=== PATIENT | female | born 1945 | race Caucasian/White ===

== ENCOUNTER 2017-06-01 20:00 | Inpatient (IN) | payer MEDICARE, OTHER ==
[~2017-06-01] VITALS: Ht 152.4 cm; Wt 65.8 kg
--- NOTE | ~2017-06-01 | CO ---
Unit #: [id number] #: [id number] Patient: DELORES HSU [id number] [facility] [address] [place] [address] [id number] I MR#: [id number] NAME: DELORES HSU ROOM: [facility] Age: 71 Sex: F Admission Date: 06/02/2017 : 1945 Attending Physician: Damian Telles M.D. Primary Care Physician: Generic Doctor Not In System Consultation Date: 06/05/2017 CONSULTATION REPORT SUBJECTIVE Delores is a 71-year-old who complained of continued dysuria despite treatment with Cipro 500 mg b.i.d. Start Pyridium 200 mg one p.o. t.i.d. x3 days. Dictated by... Krystal Alcantara P.A.-C. for Huseyin Spring/jose c TD: 06/07/2017 20:42 JOB #: [id number] CONSULTATION REPORT Page 1 of 1 X Krystal Alcantara CONSULTATION REPORT
--- NOTE | ~2017-06-01 | PN ---
Unit #: [id number] #: [id number] Patient: DELORES MOSLEY [id number] [facility] [address] [place] [address] [id number] MR#: [id number] NAME: DELORES MOSLEY ROOM: P252 Age: 71 Sex: F Admission Date: 06/02/2017 : 1945 Attending Physician: Damian Telles M.D. Admitting Physician: Damian Telles M.D. Primary Care Physician: Generic Doctor Not In System [facility] PROGRESS NOTES DATE OF SERVICE 06/10/2017 DISCUSSION Ms. Delores Mosley is a 71-year-old female. Patient seen on 06/10/2017. Patient continues to report feeling sad, depressed, withdrawn, isolative, guarded. No side effects from medication. Complete review of systems unremarkable. MENTAL STATUS EXAMINATION General appearance, patient dressed casually. Attention span and concentration fair. Oriented to time, place and person. Mood and affect sad, dysphoric. Speech monotone. Thought process concrete. Patient denied any thoughts of harming others but having passive SI. Recent and remote memory poor. Insight and judgement poor. DIAGNOSES Major depressive disorder, recurrent severe. ASSESSMENT/PLAN Advise to discontinue Remeron and add Abilify 5 mg at bedtime for mood symptoms. If needed consider further adjustment of medication. Dictated by... Huseyin Rico/anthony TD: 06/12/2017 03:57 JOB #: [id number] [facility] PROGRESS NOTES Page 1 of 1 X Damian Telles MD X PROGRESS NOTE
--- NOTE | ~2017-06-01 | DS ---
Unit #: [id number] #: [id number] Patient: JAVAN HSU [id number] [facility] [address] [place] [address] [id number] I MR#: [id number] NAME: JAVAN HSU ROOM: [facility] Age: 71 Sex: F Admission Date: 06/02/2017 : 1945 Discharge Date: 06/12/2017 Attending Physician: Damian Telles M.D. Primary Care Physician: Generic Doctor Not In System DISCHARGE SUMMARY REASON FOR ADMISSION Depression. DIAGNOSTIC STUDIES LABORATORY RESULTS: Unremarkable. HOSPITAL COURSE The patient was admitted to the inpatient unit on 06/02/2017 and discharged on 06/12/2017. The patient was treated with group therapy, individual therapy, and medication management. The patient was responsive to treatment and showed improvement. Subsequently, the patient was discharged with a plan to follow up in outpatient program. DISCHARGE MEDICATIONS Vistaril 75 mg at bedtime for sleep and anxiety, Wellbutrin XL 300 mg in the morning for depression, Cymbalta 60 mg b.i.d. for depression, and Remeron 15 mg at bedtime for sleep. The patient to continue with Lipitor, Zestril, Lopressor, Zetia, and Plavix. DISCHARGE DIAGNOSES Psychiatric: Major depressive disorder, recurrent, severe, F33.2. Secondary diagnosis: Deferred. Medical diagnoses: History of heart blockage. History of coronary artery disease. History of CVA, February 2017. Hypotension. Hypercholesterolemia. DISCHARGE INSTRUCTIONS The patient to follow up in outpatient clinic as per social security benefits interviewer. CONDITION ON DISCHARGE The patient was pleasant and cooperative. Denied any psychotic symptom or any suicidal ideation. PROGNOSIS Guarded. DIET AND ACTIVITY As tolerated. Dictated by... Damian Telles M.D. Unit #: [id number] #: [id number] Patient: JAVAN HSU TIC/modl TD: 06/13/2017 11:46 JOB #: [id number] DISCHARGE SUMMARY Page 1 of 1 X Damian Telles MD X DISCHARGE SUMMARY
--- NOTE | ~2017-06-01 | PA ---
Unit #: [id number] #: [id number] Patient: JAVAN HSU [id number] [facility] [address] [place] [address] [id number] I MR#: [id number] NAME: JAVAN HSU ROOM: P252 Age: 71 Sex: F Admission Date: 06/02/2017 : 1945 Date of Assessment: 06/02/2017 Attending Physician: Damian Telles M.D. Admitting Physician: Damian Telles M.D. Primary Care Physician: Generic Doctor Not In System PSYCHIATRIC ASSESSMENT INFORMANTS The patient reliability, fair informant and chart reliability, good. CHIEF COMPLAINT Depression. HISTORY OF PRESENT ILLNESS Ms. Estrella is a 71-year-old female, presented with the above-mentioned complaint. The patient reported currently her medications are not working. Currently, on Cymbalta. Reports an increase in depression and suicidal ideation. The patient reports a history of previous inpatient treatment at [facility], [facility], and [facility]. The patient reported not functioning in the last 5 weeks. Reports lack of energy, staying in bed, lost significant amount of weight, little food, lives alone, severe depression, suicidal ideation, grieving the of her son and history of suicide attempt. Needing inpatient admission at this time for psychiatric stabilization. PAST PSYCHIATRIC HISTORY Remarkable for history of previous treatment at [facility], [facility], [facility] for depression. FAMILY AND SOCIAL HISTORY The patient has a poor support system. No history of any abuse. No history of any substance abuse. Family psychiatric illness is remarkable for history of biological mother had bipolar mood disorder. Son with addiction. MEDICAL HISTORY Remarkable for history of heart blockage. Musculoskeletal; muscle strength and tone, no atrophy or abnormal movement. Gait normal. MEDICATION HISTORY The patient is on Cymbalta 60 mg b.i.d., Plavix 75 mg daily, Zetia 10 mg daily, vitamin B12, lisinopril, metoprolol. ALLERGIES No known drug allergies. SUBSTANCE ABUSE HISTORY None. REVIEW OF SYSTEMS Unit #: [id number] #: [id number] Patient: JAVAN HSU HEENT: Eyes, clear. Ears, nose, mouth, and throat; clear. CARDIOVASCULAR: Unremarkable. RESPIRATORY: Unremarkable. GI: Unremarkable. : Unremarkable. SKIN: Unremarkable. LYMPH NODE: Unremarkable. NEUROLOGIC: Unremarkable. ENDOCRINE: Unremarkable. HEMATOLOGIC: Unremarkable. ALLERGIC/IMMUNOLOGIC: Unremarkable. MUSCULOSKELETAL: Muscle strength and tone, no atrophy or abnormal movement. Gait normal. MENTAL STATUS EXAMINATION CONSTITUTIONAL: Measurement of vital signs; temperature 98.3, pulse 73, respirations 16, blood pressure 133/86, height 5 feet, weight 145 pounds. GENERAL APPEARANCE: The patient dressed casually. The patient did not show any facial deformity. MUSCULOSKELETAL: Please see above. PSYCHIATRIC EXAMINATION Description of speech; regular rate and rhythm. Description of thought process, goal directed. Description of association, intact. Description of abnormal psychotic thinking, denied any hallucination or delusions, but depression and suicidal ideation. Denied any homicidal ideation. Description of the patient's judgment, concerning. Everyday activity, poor. Social situation, poor and concerning. Psychiatric condition, poor. Complete mental status examination; oriented in time, place, and person. Recent and remote memory, fair. Attention span and concentration, fair. Language, able to name object and repeat phrases. Fund of knowledge, aware of current event and passive. Vocabulary intact. Mood and affect, sad and dysphoric. Insight and judgment, fair to poor. ASSETS AND LIABILITIES Assets, the patient is articulate and able to take care of her ADL. Liability, history of depression. ADMITTING DIAGNOSES Major depressive disorder, recurrent, severe, F33.2. Secondary diagnosis: Deferred. Medical diagnosis: History of heart blockage. Stressors: Psychosocial stressors. PSYCHIATRIC PLAN, TREATMENT GOAL AND DISCHARGE PLAN 1. Advised to admit the patient on the inpatient unit. Provide safe, supportive, and structured environment. 2. Ordered labs; CBC, CMP, UA, and UDS. 3. Advised to resume home medication with a plan to lower the dosage of Cymbalta and add Remeron 15 mg at bedtime. The patient to attend group therapy, individual therapy, and structured milieu. 4. Treatment goal is to attain euthymic mood, gain insight into her problem, and learn coping skills. 5. Discharge plan; plan to stabilize the patient and consider followup in Unit #: [id number] #: [id number] Patient: JAVAN HSU outpatient program. ESTIMATED LENGTH OF STAY 2 weeks. Dictated by... Damian Telles M.D. LELA/jose c TD: 06/03/2017 00:41 JOB #: [id number] PSYCHIATRIC ASSESSMENT Page 1 of 1 X Damian Telles MD PSYCHIATRIC ASSESSMENT
--- NOTE | ~2017-06-01 | PN ---
Unit #: [id number] #: [id number] Patient: DELORES MOSLEY [id number] [facility] [address] [place] [address] [id number] I MR#: [id number] NAME: DELORES MOSLEY ROOM: P252 Age: 71 Sex: F Admission Date: 06/02/2017 : 1945 Attending Physician: Damian Telles M.D. Admitting Physician: Damian Telles M.D. Primary Care Physician: Generic Doctor Not In System [facility] PROGRESS NOTES DATE OF SERVICE 06/04/2017 DISCUSSION Delores Mosley is a 71-year-old female seen on 06/04/2017. Patient interviewed, chart reviewed. Obtained information from nursing staff. Patient was compliant and cooperative. Still isolative, guarded, flat affect, reporting sad, depress, passive SI. Complete review of systems unremarkable. MENTAL STATUS EXAMINATION General appearance, patient dressed casually. Attention span and concentration fair. Oriented to time, place and person. Mood and affect sad, dysphoric. Speech monotone. Thought process concrete. Patient denied any thoughts of harming others but having passive SI. Recent and remote memory poor. Insight and judgement poor. DIAGNOSES Major depressive disorder recurrent severe. ASSESSMENT/PLAN Advise to continue with current medication and therapeutic protocol. If needed consider further adjustment of medication. Dictated by... Huseyin Rico/anthony TD: 06/06/2017 04:02 JOB #: [id number] Unit #: [id number] #: [id number] Patient: DELORES MOSLEY PROGRESS NOTES Page 1 of 1 X Damian Telles MD X PROGRESS NOTE
--- NOTE | ~2017-06-01 | PN ---
Unit #: [id number] #: [id number] Patient: DELORES MOSLEY [id number] [facility] [address] [place] [address] [id number] I MR#: [id number] NAME: DELORES MOSLEY ROOM: P252 Age: 71 Sex: F Admission Date: 06/02/2017 : 1945 Attending Physician: Damian Telles M.D. Admitting Physician: Damian Telles M.D. Primary Care Physician: Generic Doctor Not In System [facility] PROGRESS NOTES DATE 06/08/2017 DISCUSSION Ms. Delores Mosley is a 71-year-old female. The patient interviewed, chart reviewed, and obtained information from the nursing staff. The patient was compliant and cooperative. Mood sad and dysphoric, isolative, guarded. REVIEW OF SYSTEMS Complete review of systems unremarkable. MENTAL STATUS EXAMINATION General appearance: Patient dressed casually. Attention span and concentration, fair. Oriented in time, place, and person. Mood and affect, sad and depressed. Speech, monotone. Thought process, concrete. The patient reported having passive SI, withdrawn, isolative. Recent and remote memory, poor. Insight and judgment, poor. DIAGNOSIS Bipolar mood disorder, NOS. ASSESSMENT/PLAN Advised to continue with the current medication and therapeutic protocol, and if needed consider further adjustment of medication. Dictated by... Huseyin Rico/luis a TD: 06/09/2017 05:35 JOB #: [id number] Unit #: [id number] #: [id number] Patient: DELORES MOSLEY PROGRESS NOTES Page 1 of 1 X Damian Telles MD X PROGRESS NOTE
--- NOTE | ~2017-06-01 | HP ---
Unit #: [id number] #: [id number] Patient: DELORES HSU [id number] [place] [address] [id number] MR#: [id number] NAME: DELORES HSU ROOM: P252 Age: 71 Sex: F Admission Date: 06/02/2017 : 1945 Attending Physician: Damian Telles M.D. Admitting Physician: Damian Telles M.D. Primary Care Physician: Generic Doctor Not In System HISTORY AND PHYSICAL HISTORY OF PRESENT ILLNESS Delores is a 71 year old admitted to [address] [place] [address] with depression. PAST MEDICAL HISTORY 1. Coronary artery disease. 2. History of CVA, February 2017. 3. High blood pressure. 4. Hypercholesterolemia. PAST SURGICAL HISTORY 1. Hysterectomy. 2. x1. 3. Right rib resected. 4. Appendectomy. ALLERGIES Codeine, sulfa, aspirin. SOCIAL HISTORY She does not smoke. Drinks alcohol on occasion. Denies illicit drug use. FAMILY HISTORY Medically noncontributory. REVIEW OF SYSTEMS CONSTITUTIONAL: No fever or chills. HEENT: Denies any sore throat, ear pain or runny nose. CARDIOVASCULAR: Denies chest pain, irregular heart rhythm or palpitations. CHEST: Denies shortness of breath or cough. No hemoptysis. GASTROINTESTINAL: Denies nausea, vomiting, diarrhea or chronic constipation. ENDOCRINE: Denies history of increased thirst or urination. No recent significant weight loss or gain. GENITOURINARY: Denies dysuria, frequency, or hematuria. SKIN: Denies any rashes. HEMATOLOGIC: Denies history of increased bleeding or bruising. MUSCULOSKELETAL: Denies any hot, swollen joints. No generalized muscle pain. NEUROLOGIC: Denies problems with vision or speech. No frequent, severe headaches. No numbness, tingling or weakness in any extremities. Denies loss of bladder or bowel control. CURRENT MEDICATIONS Unit #: [id number] #: [id number] Patient: DELORES HSU 1. Lipitor 40 mg daily. 2. Vistaril 75 mg q.h.s. 3. Cymbalta 60 mg daily. 4. Remeron 15 mg q.h.s. 5. Plavix 75 mg daily. 6. Zetia 10 mg daily. 7. Lopressor 12.5 mg b.i.d. 8. Lisinopril 2.5 mg daily. 9. Milk of Magnesia p.r.n. 10. Maalox p.r.n. 11. Tylenol p.r.n. PHYSICAL EXAMINATION GENERAL: Alert, well-nourished, in no apparent distress. VITAL SIGNS: Blood pressure 132/86, heart rate 80, respirations 16, temperature 98.6. WEIGHT: 145. HEIGHT: 5 feet 0 inches. SKIN: Warm and dry without rash or lesion. HEENT: Normocephalic. TMs not viewed. Oral and nasal passages clear. Conjunctivae clear. PERRLA. EOMs intact. NECK: Supple without lymphadenopathy or thyromegaly. HEART: Regular rate and rhythm without murmur. LUNGS: Clear. ABDOMEN: Soft, nontender. : Not done. EXTREMITIES: No evidence of cyanosis, clubbing or edema. Moves all without focal deficit. NEUROLOGICAL: Grossly within normal limits. Cranial Nerves: II: Visual aguilar are intact. III, IV AND : Extraocular movements are intact. Pupils are equal, round and reactive to light. V: Facial sensation is grossly normal. VII: Facial movements and expression are normal. VIII: Auditory acuity grossly intact. IX, X: Uvula is midline. Phonation is normal. XI: Patient shrugs shoulders and turns head normally. XII: Tongue protrudes in the midline. Sensory and Motor Function: Sensory and motor sensation is grossly normal. Motor: moves all extremities well. Coordination: Gait is normal. Deep Tendon Reflexes: Intact. IMPRESSION Psychiatric admission. RECOMMENDATIONS PSYCHIATRIC: Per psychiatrist. MEDICAL: See no contraindication to participate in facility's activities. MEDICAL PROGNOSIS Good. MEDICAL CONDITION Stable. Dictated by... Krystal Alcantara P.A.-C. for Unit #: [id number] #: [id number] Patient: DELORES HSU Huseyin Spring/margarita TD: 06/02/2017 18:06 JOB #: [id number] HISTORY AND PHYSICAL Page 1 of 1 X Krystal Alcantara X HISTORY AND PHYSICAL
--- NOTE | ~2017-06-01 | PN ---
Unit #: [id number] #: [id number] Patient: JAVAN HSU [id number] [facility] [address] [place] [address] [id number] I MR#: [id number] NAME: JAVAN HSU ROOM: P252 Age: 71 Sex: F Admission Date: 06/02/2017 : 1945 Attending Physician: Damian Telles M.D. Admitting Physician: Damian Telles M.D. Primary Care Physician: Generic Doctor Not In System [facility] PROGRESS NOTES DATE OF SERVICE 06/03/2017 DISCUSSION Ms. Estrella is a 71-year-old female seen on 06/03/2017. Patient continues to be withdrawn, isolative, flat. Affect sad, dysphoric. Patient still is reporting having suicidal ideation, withdrawn. Complete review of systems unremarkable. MENTAL STATUS EXAMINATION General appearance, patient dressed casually. Attention span and concentration fair. Oriented to time, place and person. Mood and affect sad, dysphoric, flat. The patient reported having suicidal ideation, withdrawn, isolative. Recent and remote memory poor. Insight and judgement poor. DIAGNOSES Major depressive disorder, recurrent, severe. ASSESSMENT/PLAN Advise to continue with current medication and therapeutic protocol. If needed consider further adjustment of medication. Dictated by... Huseyin Rico/anthony TD: 06/05/2017 02:48 JOB #: [id number] [facility] PROGRESS NOTES Page 1 of 1 X Damian Telles MD PROGRESS NOTE
--- NOTE | ~2017-06-01 | PN ---
Unit #: [id number] #: [id number] Patient: DELORES MOSLEY [id number] [facility] [address] [place] [address] [id number] MR#: [id number] NAME: DELORES MOSLEY ROOM: P252 Age: 71 Sex: F Admission Date: 06/02/2017 : 1945 Attending Physician: Damian Telles M.D. Admitting Physician: Damian Telles M.D. Primary Care Physician: Generic Doctor Not In System [facility] PROGRESS NOTES DATE OF SERVICE 06/05/2017 DISCUSSION Ms. Delores Mosley is a 71-year-old female. The patient interviewed, chart reviewed. Obtained information from nursing staff. The patient continues to be isolative, guarded, flat affect. Sad, dysphoric mood. The patient reported that she was started on antibiotic for UTI. Still having symptoms. The patient was on Levaquin. The patient started Wellbutrin this morning. No side effects from medication. Mood sad, depressed. Complete Review of Systems: Unremarkable. MENTAL STATUS EXAMINATION General Appearance: The patient dressed casually. Attention span, concentration: Fair. Oriented in time, place, and person. Speech: Monotone. Thought process: Jensen. The patient reporting having suicidal ideation, no plans, withdrawn, isolative, guarded. Recent and remote memory: Poor. Insight and judgment: Poor. DIAGNOSIS Major depressive disorder, recurrent, severe. ASSESSMENT/PLAN Advised to continue with current medication and therapeutic protocol. If needed, consider further adjustment of medication. Dictated by... Huseyin Rico/bettina TD: 06/06/2017 10:52 JOB #: [id number] Unit #: [id number] #: [id number] Patient: DELORES MOSLEY PROGRESS NOTES Page 1 of 1 X Damian Telles MD X PROGRESS NOTE
--- NOTE | ~2017-06-01 | PN ---
Unit #: [id number] #: [id number] Patient: JAVAN HSU [id number] [facility] [address] [place] [address] [id number] I MR#: [id number] NAME: JAVAN HSU ROOM: P252 Age: 71 Sex: F Admission Date: 06/02/2017 : 1945 Attending Physician: Damian Telles M.D. Admitting Physician: Damian Telles M.D. Primary Care Physician: Generic Doctor Not In System [facility] PROGRESS NOTES DATE 06/05/2017 DISCUSSION Ms. Estrella is a 71-year-old female, patient seen on 06/05/2017. The patient interviewed, chart reviewed, and obtained information from the nursing staff. The patient continue to report feeling sad, depressed, passive SI, tolerating medication fairly well. REVIEW OF SYSTEMS Complete review of systems unremarkable. MENTAL STATUS EXAMINATION General appearance: Patient dressed casually. Attention span and concentration, fair. Oriented in time, place, and person. Mood and affect, sad, depressed. Speech, monotone. The patient reported having suicidal ideation, passive, flat, withdrawn. Recent and remote memory, poor. Insight and judgment, poor. DIAGNOSIS Major depressive disorder, recurrent, severe. ASSESSMENT/PLAN Advised to increase Cymbalta to 60 mg twice daily, add Mobic 15 mg daily for pain. Continue with the inpatient programming, if needed consider further adjustment of medication. Dictated by... Huseyin Rico/luis a TD: 06/07/2017 06:03 JOB #: [id number] Unit #: [id number] #: [id number] Patient: JAVAN HSU [facility] PROGRESS NOTES Page 1 of 1 X Damian Telles MD PROGRESS NOTE
--- NOTE | ~2017-06-01 | PN ---
Unit #: [id number] #: [id number] Patient: DELORES MOSLEY [id number] [facility] [address] [place] [address] [id number] I MR#: [id number] NAME: DELORES MOSLEY ROOM: P252 Age: 71 Sex: F Admission Date: 06/02/2017 : 1945 Attending Physician: Damian Telles M.D. Admitting Physician: Damian Telles M.D. Primary Care Physician: Generic Doctor Not In System [facility] PROGRESS NOTES DATE 06/07/2017 DISCUSSION Ms. Delores Mosley is a 71-year-old female seen on 05/21/2017. Patient interviewed, chart reviewed. Obtained information from nursing staff. Patient was compliant and cooperative. Mood sad, dysphoric, flat affect, guarded. Patient still having passive SI, withdrawn, isolative. Complete review of systems unremarkable. MENTAL STATUS EXAMINATION General appearance, patient dressed casually. Attention span and concentration fair. Oriented to time, place and person. Mood and affect labile. Speech monotone. Thought process concrete. Patient reported having suicidal ideation, withdrawn, isolative, flat affect. Recent and remote memory poor. Insight and judgement poor. DIAGNOSES Major depressive disorder recurrent severe. ASSESSMENT/PLAN Advise to continue with current medication and therapeutic protocol. If needed consider further adjustment of medication. Dictated by... Huseyin Rico/anthony TD: 06/08/2017 23:49 JOB #: [id number] Unit #: [id number] #: [id number] Patient: DELORES MOSLEY PROGRESS NOTES Page 1 of 1 X Damian Telles MD PROGRESS NOTE
--- NOTE | ~2017-06-01 | PN ---
Unit #: [id number] #: [id number] Patient: DELORES MOSLEY [id number] [facility] [address] [place] [address] [id number] MR#: [id number] NAME: DELORES MOSLEY ROOM: P252 Age: 71 Sex: F Admission Date: 06/02/2017 : 1945 Attending Physician: Damian Telles M.D. Admitting Physician: Damian Telles M.D. Primary Care Physician: Generic Doctor Not In System [facility] PROGRESS NOTES DATE 06/09/2017 DISCUSSION Ms. Delores Mosley is a 71-year-old female seen on 06/09/2017. Patient interviewed. Chart reviewed. Obtained information from nursing staff. Patient was compliant, cooperative. Mood sad, dysphoric, withdrawn, isolative, guarded. Patient still reporting not much improvement in her mood, passive SI. Complete review of system unremarkable. MENTAL STATUS EXAMINATION General appearance, patient dressed casually. Attention span, concentration fair. Oriented in time, place and person. Mood and affect labile. Speech monotone. Thought process concrete. Patient having passive SI. No side effects from medication. Recent and remote memory poor. Insight and judgement poor. DIAGNOSIS Major depressive disorder, recurrent, severe. ASSESSMENT/PLAN Advised to continue with current medication and therapeutic protocol. If needed, consider further adjustment of medication. Dictated by... Damian Telles M.D. LELA/margarita TD: 06/10/2017 15:50 JOB #: [id number] Unit #: [id number] #: [id number] Patient: DELORES MOSLEY PROGRESS NOTES Page 1 of 1 X Damian Telles MD PROGRESS NOTE
--- NOTE | ~2017-06-01 | PN ---
Unit #: [id number] #: [id number] Patient: DELORES MOSLEY [id number] [facility] [address] [place] [address] [id number] MR#: [id number] NAME: DELOERS MOSLEY ROOM: P252 Age: 71 Sex: F Admission Date: 06/02/2017 : 1945 Attending Physician: Damian Telles M.D. Admitting Physician: Damian Telles M.D. Primary Care Physician: Generic Doctor Not In System [facility] PROGRESS NOTES DATE 06/11/2017 DISCUSSION Ms. Delores Mosley is a 71-year-old female, seen on 06/11/2017. The patient interviewed, chart reviewed, and obtained information from nursing staff. Patient compliant and cooperative and tolerating medication fairly well. No side effects from medication. Mood sad, dysphoric, isolative, guarded. REVIEW OF SYSTEMS Complete review of system unremarkable. MENTAL STATUS EXAMINATION General appearance, the patient dressed casually. Attention span and concentration, fair. Oriented in time, place and person. Mood and affect, sad and dysphoric. Speech, monotone. Thought process, concrete. The patient denied any thoughts of harming self or others. Recent and remote memory, poor. Insight and judgment, poor. DIAGNOSES Major depressive disorder. ASSESSMENT/PLAN Advised to continue with current medication and therapeutic protocol. If needed, consider further adjustment of medication. Dictated by... Huseyin Rico/luly TD: 06/13/2017 11:54 JOB #: [id number] Unit #: [id number] #: [id number] Patient: DELORES MOSLEY PROGRESS NOTES Page 1 of 1 X Damian Telles MD PROGRESS NOTE
--- NOTE | ~2017-06-01 | CO ---
Unit #: [id number] #: [id number] Patient: DELORES HSU [id number] [facility] [address] [place] [address] [id number] MR#: [id number] NAME: DELORES HSU ROOM: P252 Age: 71 Sex: F Admission Date: 06/02/2017 : 1945 Attending Physician: Damian Telles M.D. Primary Care Physician: Generic Doctor Not In System Consultation Date: 06/02/2017 CONSULTATION REPORT SUBJECTIVE Delores is a 71 year old with a history of high blood pressure. We have been asked to review her blood pressures and her medications. OBJECTIVE GENERAL: Alert, well-nourished, in no apparent distress. VITAL SIGNS: Blood pressures 147/72, 160/100, 132/86, 100/50, heart rate 74, 65, 73, respirations 16, temperature 98.6. CARDIOVASCULAR: Rate and rhythm is regular. CHEST: Lungs clear. EXTREMITIES: No edema. HOME MEDICATIONS 1. Lopressor 12.5 mg b.i.d. 2. Lisinopril 2.5 mg daily. ASSESSMENT High blood pressure, good control after a few days on her medication. I highly suspect that she has been noncompliant. PLAN Continue Lopressor and lisinopril. She can followup with her PCP. Dictated by... Krystal Alcantara P.A.-C. for Huseyin Spring/margarita TD: 06/08/2017 20:08 JOB #: [id number] CONSULTATION REPORT Page 1 of 1 X Krystal Alcantara CONSULTATION REPORT
[2017-06-02 12:47] LABS: URINE APPEARANCE TURBID; URINE BILIRUBIN NEG (NEG); URINE BLOOD NEG (NEG); URINE COLOR DK YELLOW; URINE GLUCOSE NEG (NEG); URINE KETONE TRACE (NEG); URINE LEUKOCYTE ESTERASE 2+ (NEG); URINE NITRATE NEG (NEG); URINE PROTEIN NEG (NEG); URINE SPECIFIC GRAVITY 1.027 (1.003-1.035)
[2017-06-02 12:56] LABS: URINE BACTERIA AUWI 1+ (NEGATIVE); URINE SQUAMOUS EPITHELIAL CELL OCC /[HPF]; UWBCS1 AUWI 25-50 (0-5)
== END 2017-06-12 11:00 | disposition home or self-care (01) | DRG 885 ==
LOC: P2L 06-02 03:33
PROVIDERS: Psychiatry & Neurology Psychiatry
DX: F33.2 Major depressive disorder, recurrent severe without psychotic features (principal); R45.851 Suicidal ideations; I10 Essential (primary) hypertension; I25.10 Atherosclerotic heart disease of native coronary artery without angina pectoris; Z86.73 Personal history of transient ischemic attack (TIA), and cerebral infarction without residual deficits; E78.00 Pure hypercholesterolemia, unspecified; Z90.710 Acquired absence of both cervix and uterus; Z88.2 Allergy status to sulfonamides; Z88.5 Allergy status to narcotic agent; Z88.6 Allergy status to analgesic agent
CPT/HCPCS: 81003